=== PATIENT | male | born 1985 | race Caucasian/White ===

== ENCOUNTER 2020-05-28 10:01 | Emergency (ER) | payer OTHER, SELFPAY ==
--- NOTE | 2020-05-28 10:13 | ED.GENADULT ---
HPI - General Adult General Chief complaint: Upper Respiratory Infection Stated complaint: upper respiratory infection Time Seen by Provider: 05/28/20 10:13 Source: patient Mode of arrival: ambulatory Limitations: no limitations History of Present Illness HPI narrative: 34-year-old male patient presents to the [facility] with complaints of sinus symptoms that started yesterday. Denies any fevers, body aches or chills. Patient states that he has had a little bit of a runny and stuffy nose along with pressure under the eyes. Denies any ear pain. Patient states he did have a sore throat yesterday that has improved today. Denies any coughing, chest pain or shortness of breath. Denies any abdominal pain, nausea, vomiting or diarrhea. Patient states he has been taking DayQuil for his symptoms. Patient states he does work outside and does [employer]ing and is self-employed. Patient states he does not have any concerns with being exposed to Covid. Denies any loss of taste or smell. Patient is refusing Covid testing at this time. Related Data Allergies Allergy/AdvReac Type Severity Reaction Status Date / Time No Known Allergies Allergy Verified 05/28/20 10:22 Review of Systems Review of Systems: Narrative: CONSTITUTIONAL: Denies fever, chills, or sweats. EYES: Denies visual changes, redness, or discharge. ENT: Positive rhinorrhea, congestion, sore throat, denies otalgia. CARDIOVASCULAR: Denies chest pain, palpitations, or edema. RESPIRATORY: Denies cough or dyspnea. GASTROINTESTINAL: Denies abdominal pain, nausea, vomiting, or diarrhea. GENITOURINARY: Denies dysuria or hematuria. SKIN: Denies rash or itching. MUSCULOSKELETAL: Denies back pain, joint pain, or myalgia. NEUROLOGIC: Denies headache, numbness, or weakness. PSYCHIATRIC: Denies anxiety or depression. PMFSH Comments At the time of my signature I agree with nursing past medical history, surgical, social, and family history. There is no relevant family history pertinent to the presenting complaint. Exam Narrative: Exam Narrative: GENERAL: Well-appearing, well-nourished, and in no acute distress. HEAD: Normocephalic, atraumatic. EYES: PERRLA and EOMI. ENT: Nares with erythema and edema noted bilaterally, no rhinorrhea or epistaxis. Mucous membranes moist. Posterior pharynx with no erythema, tonsillectomy, exudates or lesions present. Bilateral TMs are unable to be assessed due to cerumen. NECK: Supple. No lymphadenopathy CHEST: Clear to auscultation. No respiratory distress. Patient able talk clear complete sentences. HEART: Regular rate and rhythm. No murmur heard. Normal peripheral pulses. ABDOMEN: Soft, nontender, nondistended, normal active bowel sounds. EXTREMITIES: Normal range of motion. No edema. SKIN: Warm, dry, no rash. NEURO: No focal deficits. Alert and oriented x3. Course Reevaluation(s) Reevaluation #1: Reevaluated patient after his flu and strep had resulted. Discussed with them that the flu and strep are negative today. Discussed with them that this is most likely due to seasonal allergies especially since he does work outside. Discussed with patient I will discharge him home with a daily antihistamine as well as a nasal spray. Demonstrated patient on how to properly use nasal spray for the congestion. Patient verbalized understanding denies any other questions or concerns at this time. Date: 05/28/20 Time: 10:35 Vital Signs Vital signs: Vital Signs Temperature 36.6 C 05/28/20 10:17 Pulse Rate 93 05/28/20 10:17 Respiratory Rate 20 05/28/20 10:17 Blood Pressure 132/62 05/28/20 10:17 Pulse Oximetry 100 05/28/20 10:17 Temperature 36.6 C 05/28/20 10:17 Pulse Rate 93 05/28/20 10:17 Respiratory Rate 20 05/28/20 10:17 Blood Pressure 132/62 05/28/20 10:17 Pulse Oximetry 100 05/28/20 10:17 Vital signs reviewed. Medical Decision Making Differential Diagnosis Differential Diagnosis: Differential diagnosis: Allergic r
[2020-05-28 10:17] VITALS: BP 132/62; PULSE 93; RESP 20; TEMP 36.6; O2SAT 100
== END 2020-05-28 10:35 | disposition home or self-care (01) ==
PROVIDERS: Emergency Provider Nurse Practitioner Family
DX: J06.9 Acute upper respiratory infection, unspecified (principal); J30.2 Other seasonal allergic rhinitis
CPT/HCPCS: 87081; 87804; 87880; 99203; G0463